=== PATIENT | female | born 1970 | race African-American/Black ===

== ENCOUNTER 2021-12-23 12:31 | Emergency (ER) | payer OTHER ==
[2021-12-23] MEDS ORDERED: Ketorolac Tromethamine 30 MG/ML VIAL ONE (13:24)
== END 2021-12-23 13:30 | disposition home or self-care (01) ==
LOC: CSHERS 12:31
DX: J32.0 Chronic maxillary sinusitis (principal); I10 Essential (primary) hypertension; E78.5 Hyperlipidemia, unspecified
CPT/HCPCS: 96372; 99283; J1885

== ENCOUNTER 2022-03-08 06:10 | Emergency (ER) | payer OTHER ==
[2022-03-08 16:37] LABS: SARS-CoV-2 PCR by NAA Not Detected (NotDetected)
== END 2022-03-08 07:30 | disposition home or self-care (01) ==
LOC: CSHERS 06:10
DX: J39.9 Disease of upper respiratory tract, unspecified (principal); M54.50 Low back pain, unspecified; Z20.822 Contact with and (suspected) exposure to COVID-19; Z79.899 Other long term (current) drug therapy; I10 Essential (primary) hypertension; E78.5 Hyperlipidemia, unspecified
CPT/HCPCS: 99283; U0003; U0005

== ENCOUNTER 2022-05-03 21:37 | Emergency (ER) | payer OTHER ==
[2022-05-03 22:58] LABS: #Eosinphils 0.1 10x3/uL (0.0-0.5); #Monocytes 0.7 10x3/uL (0.0-1.1); #Neutrophils 6.9 10x3/uL (1.5-8.4); %Basophils 0.4 % (0.0-2.0); %Eosinophils 0.5 % (0.0-6.0); %Lymphocytes 26.6 % (18.0-47.0); %Monocytes 6.8 % (0.0-10.0); %Neutrophils 65.4 % (40.0-75.0); Hemoglobin 11.5 g/dL (12.0-15.5); Mean Corpuscular HGB CONC 31.8 g/dL (32.0-36.0); Mean Corpuscular Hemoglobin 23.4 pg (27.0-33.0); Mean Corpuscular Volume 73.7 fl (81.6-98.3); Mean Platelet Volume 9.8 fl (7.4-10.4); Platelet Count 380 10x3/uL (150-450); RBC Distribution Width 14.8 % (11.5-14.5); Red Blood Cell (RBC) Count 4.91 10x6/uL (3.90-5.03); White Blood Cell (WBC) Count 10.6 10x3/uL (3.5-10.5)
[2022-05-03 23:00] LABS: SARS-CoV-2 NAA Rapid Test Not Detected (NotDetected)
[2022-05-03] MEDS ORDERED: Acetaminophen 500 MG TAB ONE (23:00)
[2022-05-03 23:08] LABS: ALT (SGPT) 90 U/L (8-55); AST (SGOT) 103 U/L (5-34); Albumin 4.2 g/dL (3.5-5.0); Alkaline Phosphatase 79 U/L (40-110); Anion Gap 13 mmol/L (10-20); BUN (Urea Nitrogen) 12 mg/dL (9.8-20.1); Bilirubin, Total 0.4 mg/dL (0.2-1.2); Calc. Creatinine Clearance 0 mL/min (70-130); Calcium 9.5 mg/dL (7.8-10.44); Carbon Dioxide 25 mmol/L (22-29); Chloride 106 mmol/L (98-107); Estimated GFR 67; Globulin 3.4 g/dL (2.4-3.5); Glucose 127 mg/dL (70-105); Potassium 3.7 mmol/L (3.5-5.1); Protein, Total 7.6 g/dL (6.0-8.3); Sodium 140 mmol/L (136-145)
[2022-05-03] MEDS ORDERED: Ketorolac Tromethamine 30 MG/ML VIAL ONE (23:52)
== END 2022-05-04 01:53 | disposition home or self-care (01) ==
LOC: CSHERS 21:37
DX: B34.9 Viral infection, unspecified (principal); R00.0 Tachycardia, unspecified; Z20.822 Contact with and (suspected) exposure to COVID-19; I10 Essential (primary) hypertension; E78.5 Hyperlipidemia, unspecified; Z79.899 Other long term (current) drug therapy
CPT/HCPCS: 36415; 71045; 80053; 85025; 87081; 87430; 96374; J1885

== ENCOUNTER 2023-04-20 07:50 | Emergency (ER) | payer SELFPAY | END 2023-04-20 08:35 | disposition home or self-care (01) | LOC: CSHERS 07:50 | DX: H60.92 Unspecified otitis externa, left ear (principal); I10 Essential (primary) hypertension; E78.5 Hyperlipidemia, unspecified; Z79.899 Other long term (current) drug therapy | CPT/HCPCS: 99283 ==

== ENCOUNTER 2024-05-19 12:59 | Emergency (ER) | payer SELFPAY ==
[2024-05-19] MEDS ORDERED: Ibuprofen 200 MG TAB ONE (13:29)
== END 2024-05-19 14:41 | disposition home or self-care (01) ==
LOC: CSHERS 12:59
DX: S93.402A Sprain of unspecified ligament of left ankle, initial encounter (principal); I10 Essential (primary) hypertension; X50.1XXA Overexertion from prolonged static or awkward postures, initial encounter